=== PATIENT | female | born 1975 | race Caucasian/White ===

== ENCOUNTER → 2017-01-25 | Outpatient (CLI) | payer MEDICAID ==
[~2017-01-25] MED LIST: AZITHROMYCIN250 MG PO; DURAGESIC TD; EAC TD; EXCEDRIN TENSIO1 TAB PO; LORTAB 500 MG-11 TAB PO; OMNICEF 300 MG300 MG PO; TAMIFLU 75MG CA75 MG PO
[2017-01-25 15:45] LABS: LYMPH # 2.4 K/mm3 (0.7-4.5); LYMPH % 28.5 % (10-50.0)
[2017-01-25 15:47] LABS: HEMOGLOBIN 14.3 g/dL (12.2-16.2)
[2017-01-25 17:07] LABS: BUN 10 mg/dL (7-18)
[2017-01-25 17:10] LABS: GFR (ESTIMATED) 92 ML/MIN (59-)
== END ==
LOC: RT 15:24 → LAB 15:24
PROVIDERS: Surgery
DX: K81.1 Chronic cholecystitis (principal); Z01.810 Encounter for preprocedural cardiovascular examination; Z01.811 Encounter for preprocedural respiratory examination; Z01.812 Encounter for preprocedural laboratory examination

== ENCOUNTER 2017-01-28 08:30 | Day surgery (SDC) | payer MEDICAID ==
[~2017-01-28] VITALS: Ht 154.9 cm; Wt 93.4 kg
--- NOTE | 2017-01-28 10:36 | Operative Note ---
Surgeon/Diagnoses Surgeon/[employer]) Date of procedure: 01/28/17 Surgeon: MD Timothy Abbasi Diagnoses Pre-op diagnosis: Chronic cholecystitis Post-op diagnosis Same Procedure Procedure Procedure: Lap scopic cholecystectomy Indications: ERLIN DILLARD is a 41 year-old Female with a history of abdominal pain, nausea, and radiographic evidence of chronic cholecystitis. Findings: Mild gallbladder distention Procedure Description: After informed consent was obtained, the patient was taken to the operating room and placed in the supine position. General anesthesia was induced and the patient's abdomen was prepped and draped in a sterile fashion. After infiltration with local anesthetic an infraumbilical incision was made. A Veress needle was placed in position. The abdomen was insufflated. A 5 mm optical trocar was placed in position. Under direct visualization, 2 additional 5 mm trocars were placed in the RIGHT upper quadrant. A 12 mm trocar was placed in the subxiphoid position. The gallbladder was elevated up and over the liver margin. The tissue around the cystic duct was carefully dissected. Clips were placed proximally and the duct was transected at the infundibulum utilizing harmonic chaitanya. Harmonic chaitanya were then utilized to remove the gallbladder from the liver margin. The gallbladder was placed in a retrieval bag and removed through the subxiphoid trocar site. The RIGHT upper quadrant was thoroughly irrigated. No active bleeding or bile leak was noted. The fascia at the subxiphoid trocar site was reapproximated utilizing the aylin-close device. Pneumoperitoneum was released as the remaining trocars were removed. All wounds were irrigated and skin was closed with 4-0 Monocryl in a subcuticular fashion. Steri-Strips were applied and the patient's anesthetic agents were reversed. After extubation, the patient was transferred to recovery in stable condition. EBL (ml): 10 Anesthesia: GETA Complications: No immediate Specimens: Gallbladder Disposition Disposition: Stable to recovery from where she will be discharged home. She will follow-up in 1-2 weeks. at [id number]
--- NOTE | 2017-01-28 10:47 | Anesthesia Record ---
Anesthesia Record Part I Total IV fluids: 1500 EBL (ml): 0 Urine Output: 0 B/P: 118/78 % SaO2: 93 Pulse: 75 Resps: 12 Temp: 97.5 Patient is: Awake, Stable Stable to PACU at: 1042 at 1047
--- NOTE | 2017-01-28 10:48 | Anesthesia Record ---
Anesthesia Record Part II Discharge time: 1112 Destination: Same day surgery PACU nurse assessment review? Yes Patient is: Awake, Stable Anesthesia complications? No at 1040
[2017-01-28 14:50] VITALS: BP 125/69
== END 2017-01-28 12:30 | disposition home or self-care (01) ==
LOC: SDC 08:30
PROVIDERS: Surgery
PROC: 0FT44ZZ Resection of Gallbladder, Percutaneous Endoscopic Approach (ICD-10-PCS; principal; 2017-01-28 13:15)
DX: K81.1 Chronic cholecystitis (principal)